=== PATIENT | female | born 1940 | race Caucasian/White ===

== ENCOUNTER 2023-04-06 03:39 | Inpatient (IN) | payer MEDICARE, OTHER ==
[~2023-04-06] VITALS: Ht 160 cm; Wt 45.4 kg
--- NOTE | 2023-04-06 04:00 | NUR ---
[facility] HOME FOR POOR PO INTAKE HX DEMETIA AND ALZHEIMER'S. GTUBE ACCIDENTALLY CAME OFF ON MARCH 21. PT IS AO X0, DOES NOT FOLLOW COMMANDS, BREATHING UNLABORED, SATURATION 100% ON ROOM AIR. HR IS 71. GTUBE SITE HAS CLOSED. PT ATTACHED TO MONITOR AND PULSE OX. AWAITING MD FIORE.
--- NOTE | 2023-04-06 04:25 | NUR ---
MAILING MACHINE OPERATOR AT BEDSIDE
[2023-04-06] MEDS ORDERED: LEVETIRACETAM (500MG) 500 MG/5 ML VIAL IV ONE (04:26)
[2023-04-06] MEDS ORDERED: LEVETIRACETAM (500MG) 500 MG in IV NS 0.9% 100 ML IV SCH (04:30)
--- NOTE | 2023-04-06 04:41 | NUR ---
KATHERIN LOPEZ [phone]
--- NOTE | 2023-04-06 05:02 | NUR ---
MRSA SWAB COLLECTED AND SENT TO LAB. PATIENT'S BELONGINGS LIST DONE.
[2023-04-06] MEDS ORDERED: PANT40TA49 PO (05:23)
[2023-04-06] MEDS ORDERED: SENN-170 PO (05:23)
[2023-04-06] MEDS ORDERED: ZOLP10TA2 PO (05:23)
[2023-04-06] MEDS ORDERED: FLUO10CA29 PO (05:23)
[2023-04-06] MEDS ORDERED: FURO20TA4 PO (05:23)
[2023-04-06] MEDS ORDERED: LORA-259 PO (05:23)
[2023-04-06] MEDS ORDERED: ATOR20TA PO (05:23)
[2023-04-06] MEDS ORDERED: LEVE250T2 PO (05:23)
[2023-04-06] MEDS ORDERED: IV NS 0.9% 1,000 ML IV ONE (05:30)
--- NOTE | 2023-04-06 05:33 | NUR ---
COVID SWAB COLLECTED
[2023-04-06] MEDS ORDERED: MAGNESIUM HYDROXIDE 30 ML UDC PO PRN (06:30)
[2023-04-06] MEDS ORDERED: Z GUARD REMEDY 4 OZ OINT TP PRN (06:30)
[2023-04-06] MEDS ORDERED: ACETAMINOPHEN 325 MG TABLET PO PRN (06:30)
[2023-04-06] MEDS ORDERED: ZOLPIDEM TARTRATE 5 MG TABLET PO PRN (06:30)
[2023-04-06] MEDS ORDERED: ONDANSETRON HCL/PF 4 MG/2 ML VIAL IVP PRN (06:30)
[2023-04-06] MEDS ORDERED: MAG HYDROX/AL HYDROX/SIMETH 30 ML UDC PO PRN (06:30)
--- NOTE | 2023-04-06 06:33 | NUR ---
BED 112-1
--- NOTE | 2023-04-06 06:40 | NUR ---
REPORT GIVEN TO SARAN PEREZ FOR HALIMA
--- NOTE | 2023-04-06 06:41 | NUR ---
RN NOTE JUST RECEIVED REPORT FROM ER NURSE, TYSON, FOR THIS PT.
[2023-04-06 06:51] LABS: BASOPHILS # (AUTO) 0.1 K/uL (0.0-0.2); BASOPHILS % (AUTO) 1.3 % (0.0-2.0); EOSINOPHILS % (AUTO) 1.8 % (0.0-6.0); HEMATOCRIT 35 % (33-45); HEMOGLOBIN 11.3 g/dL (11.5-14.8); LYMPHOCYTES # (AUTO) 3.1 K/uL (0.8-4.8); LYMPHOCYTES % (AUTO) 36.4 % (20.0-44.0); MEAN CORPUSCULAR HGB CONC 32 g/dl (31.0-36.0); MEAN CORPUSCULAR VOLUME 93 fL (82-100); MONOCYTES # (AUTO) 0.6 K/uL (0.1-1.30); MONOCYTES % (AUTO) 7.3 % (2.0-12.0); NEUTROPHILS # (AUTO) 4.6 K/uL (1.8-8.9); NEUTROPHILS % (AUTO) 53.2 % (43.0-81.0); PLATELET COUNT (AUTO) 281 K/uL (150-450); RED BLOOD CELL COUNT(AUTO) 3.77 MIL/uL (4.0-5.2); WHITE BLOOD COUNT (AUTO) 8.6 K/uL (4.3-11.0)
--- NOTE | 2023-04-06 06:59 | NUR ---
TRANSFERRED TO BED 112 IN STABLE CONDITION
[2023-04-06 07:01] LABS: CALCIUM, SERUM 8.9 mg/dL (8.5-10.1); CREATININE 1.3 mg/dL (0.6-1.3); POTASSIUM 2.9 mmol/L (3.5-5.1)
--- NOTE | 2023-04-06 07:20 | NUR ---
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
[2023-04-06] MEDS: IV D5/0.45 NACL 1,000 ML IV PRN (07:22)
--- NOTE | 2023-04-06 07:39 | NUR ---
MS RN NOTE CHANGE SHIFT REPORT GIVEN TO DAY SHIFT RN, CONNIE, FOR CONTINUING PT CARE.
[2023-04-06 08:24] VITALS: BP 156/85
[2023-04-06] MEDS: PANTOPRAZOLE 40 MG VIAL IV SCH (09:19)
[2023-04-06] MEDS: POTASSIUM CL. PREMIX PERIPHER. 50 ML IV SCH ×6 (10:15→16:56)
[2023-04-06] MEDS ORDERED: GABA-532 PO (10:26)
[2023-04-06] MEDS ORDERED: SENN-261 PO (10:26)
[2023-04-06] MEDS ORDERED: CLOP75TA15 PO (10:26)
[2023-04-06] MEDS ORDERED: METO25TA20 PO (10:26)
--- NOTE | 2023-04-06 10:50 | NUR ---
rn received patient from yaron alas, ngt inserted at left nare, waiting for xray to be done, failure to thrive, confuse patient, bilateral soft wrist restrain done due to pulling out of ngt, no distress noted all needs attended.
--- NOTE | 2023-04-06 11:00 | NUR ---
ms rn patient so agitated, removed, ngt at this itme, patient put on bilateral soft wrist restraint, family waere notified br charge nurse.will monitor patient.
[2023-04-06 12:00] VITALS: BP 140/82
[2023-04-06] MEDS ORDERED: LORAZEPAM 1 MG TABLET PO PRN (14:30)
[2023-04-06 16:00] VITALS: BP 151/66
--- NOTE | 2023-04-06 17:00 | NUR ---
ms rn ngt reinserted w/ confirmed placement, due meds given via ngt, no distress noted,all needs attended.
--- NOTE | 2023-04-06 17:22 | NUR ---
MS RN NOTE CALLED TO DR DONIS NOTIFIED THAT PATIENT IS VERY AGITATED AND TRYING TO REMOVE ALL LINENS AND NG TUBE ,ORDERED HALDOL 1 MG IM Q8 HOUR PRN
[2023-04-06] MEDS ORDERED: HALOPERIDOL LACTATE INJ 5 MG/ML VIAL IM PRN ×2 (17:30)
[2023-04-06] MEDS: METOPROLOL TARTRATE 25 MG TABLET PO SCH (17:58)
[2023-04-06] MEDS: LEVETIRACETAM (250 MG) 250 MG TABLET PO SCH (17:58)
--- NOTE | 2023-04-06 19:15 | NUR ---
ms rn on bed, no distress noted,all needs attended,ngt in place.to be seen by dietary for feeding per charge nurse.
[2023-04-06 20:00] VITALS: BP 129/67
[2023-04-06] MEDS: SENNOSIDES 8.6 MG TABLET PO SCH (21:17)
[2023-04-06] MEDS: ATORVASTATIN 10 MG TABLET PO SCH (21:17)
[2023-04-06] MEDS: GABAPENTIN 100 MG CAPSULE PO SCH (21:17)
[2023-04-07] VITALS: BP 133/85
[2023-04-07 04:00] VITALS: BP 137/82
--- NOTE | 2023-04-07 06:44 | NUR ---
FILM TECHNICIAN closing notes Pt resting in bed, eyes closed, in stable condition, all due meds given per MD orders, tolerated well, all basic needs met and anticipated, will continue to monitor
--- NOTE | 2023-04-07 07:30 | NUR ---
MS RN OPENING NOTES; RECEIVED PT IN BED ASLEEP NOT IN ANY DISTRESS, RESPIRATION IS EVEN AND UNLABORED.NGT on left nares,npo at this time,no s/s of any distress,, iv access LAC 20G running D5 1/2 ns 75 cc/hr.all safety measures in place, bed in low and locked position,side rails up x 3, call light within reach,will monitor
[2023-04-07 08:00] VITALS: BP 140/67
[2023-04-07 08:21] LABS: BASOPHILS % (AUTO) 0.5 % (0.0-2.0); EOSINOPHILS % (AUTO) 2.4 % (0.0-6.0); HEMATOCRIT 33 % (33-45); HEMOGLOBIN 10.7 g/dL (11.5-14.8); LYMPHOCYTES # (AUTO) 2.4 K/uL (0.8-4.8); LYMPHOCYTES % (AUTO) 29.5 % (20.0-44.0); MEAN CORPUSCULAR HGB CONC 33 g/dl (31.0-36.0); MEAN CORPUSCULAR VOLUME 93 fL (82-100); MONOCYTES # (AUTO) 0.6 K/uL (0.1-1.30); MONOCYTES % (AUTO) 7.1 % (2.0-12.0); NEUTROPHILS # (AUTO) 4.9 K/uL (1.8-8.9); NEUTROPHILS % (AUTO) 60.5 % (43.0-81.0); PLATELET COUNT (AUTO) 261 K/uL (150-450); RED BLOOD CELL COUNT(AUTO) 3.54 MIL/uL (4.0-5.2); WHITE BLOOD COUNT (AUTO) 8.1 K/uL (4.3-11.0)
[2023-04-07 08:41] LABS: CALCIUM, SERUM 9.5 mg/dL (8.5-10.1); MAGNESIUM 2.5 mg/dL (1.8-2.4); PHOSPHORUS 2.5 mg/dL (2.5-4.9); POTASSIUM 3.8 mmol/L (3.5-5.1)
[2023-04-07] MEDS: METOPROLOL TARTRATE 25 MG TABLET PO SCH ×3 (09:00→17:00)
[2023-04-07] MEDS ORDERED: PANTOPRAZOLE 40 MG TABLET.DR PO SCH (09:00)
[2023-04-07 09:10] LABS: THYROID STIMULATING HORMONE 0.216 uIU/mL (0.358-3.74)
[2023-04-07] MEDS: PANTOPRAZOLE 40 MG VIAL IV SCH (09:20)
[2023-04-07] MEDS: LEVETIRACETAM (250 MG) 250 MG TABLET PO SCH ×2 (09:21→17:51)
[2023-04-07] MEDS: FUROSEMIDE 20 MG TABLET PO SCH (09:21)
[2023-04-07] MEDS: Fluoxetine 10 mg capsule PO SCH (09:21)
[2023-04-07] MEDS: CLOPIDOGREL BISULFATE 75 MG TABLET PO SCH (09:21)
--- NOTE | 2023-04-07 10:45 | NUR ---
seen by who said pt is safe only for ice chips no food recommended at this time spoke to DR Aquino with order to start tube feeding jevity 1.2 at 20 ml/hr and RD recommendation.
[2023-04-07] MEDS ORDERED: JEVITY 1.2 CAL 1,000 ML BOTTLE GT PRN ×2 (11:00)
[2023-04-07] MEDS: IV D5/0.45 NACL 1,000 ML IV PRN (14:04)
[2023-04-07 16:00] VITALS: BP 120/64
--- NOTE | 2023-04-07 19:38 | NUR ---
rn closing noted: Pt resting in bed, eyes closed, in stable condition, all due meds given per MD orders, tolerated well, all basic needs met and anticipated, all safety measures in place, bed in low and locked position.call light within reachendorsed to community aide RN for brando
--- NOTE | 2023-04-07 19:40 | NUR ---
MS RN OPENING NOTE RECEIVED PATIENT IN BED; AWAKE, ALERT AND ORIENTED X 1. CONFUSED. ON ROOM AIR; TOLERATING WELL SATURATING @ 96%. BREATHING EVEN AND NONLABORED. NOT IN ANY FORM OF RESPIRATORY OR CARDIAC DISTRESS. NO S/S OF PAIN OR DISCOMFORT NOTED AT THIS TIME. WITH IV ACCESS ON LEFT HAND 20g; PATENT AND INTACT RUNNING WITH D5 1/2 NS 1L REGULATED @ 75 ML/HR; FLUSHES WELL. WITH BILATERAL SOFT WRIST RESTRAINTS IN PLACE; SKIN AND CIRCULATION; WNL. WITH NGT @ LEFT NARES; PATENT AND INTACT INFUSING WITH JEVITY 1.2 RUNNING @ 20 ML/HR; FLUSHING WELL. NEEDS ATTENDED. FALL, SAFETY AND ASPIRATION PRECAUTIONS INITIATED: HEAD OF BED ELEVATED, CALL LIGHT AND TABLE WITHIN REACH, SIDE RAILS UP X 3, BED IN LOWEST LOCKED POSITION. WILL CONTINUE TO MONITOR THROUGHOUT SHIFT.
[2023-04-07 20:00] VITALS: BP 144/73
[2023-04-07] MEDS: GABAPENTIN 100 MG CAPSULE PO SCH (21:39)
[2023-04-07] MEDS: ATORVASTATIN 10 MG TABLET PO SCH (21:39)
[2023-04-07] MEDS: SENNOSIDES 8.6 MG TABLET PO SCH (21:39)
[2023-04-08 04:00] VITALS: BP 155/78
[2023-04-08] MEDS: IV D5/0.45 NACL 1,000 ML IV PRN ×2 (04:52→18:30)
--- NOTE | 2023-04-08 06:40 | NUR ---
MS RN CLOSING NOTE PATIENT IN BED; AWAKE, A/O X 1. CONFUSED. STABLE ON ROOM AIR. IN NO ACUTE DISTRESS. NO S/S OF PAIN OR DISCOMFORT NOTED AT THIS TIME. WITH IV ACCESS ON RIGHT HAND 20g; PATENT AND INTACT RUNNING WITH D5 1/2 NS 1L REGULATED @ 75 ML/HR; FLUSHES WELL. WITH BILATERAL SOFT WRIST RESTRAINTS IN PLACE; SKIN AND CIRCULATION; WNL. WITH NGT @ LEFT NARES; PATENT AND INTACT INFUSING WITH JEVITY 1.2 RUNNING @ 20 ML/HR; FLUSHING WELL. ALL NEEDS ATTENDED. FALL, SAFETY AND ASPIRATION PRECAUTIONS MAINTAINED: HEAD OF BED ELEVATED, CALL LIGHT AND TABLE WITHIN REACH, SIDE RAILS UP X 3, BED IN LOWEST LOCKED POSITION. ENDORSED TO MORNING SHIFT FOR CONTINUITY OF CARE.
--- NOTE | 2023-04-08 07:41 | NUR ---
MS RN OPENING NOTE (DAY SHIFT) RECEIVED PT IN BED ASLEEP NOT IN ANY DISTRESS, RESPIRATION IS EVEN AND UNLABORED.NGT on left nares,npo at this time,no s/s of any distress,, iv access LAC 20G running D5 1/2 ns 75 cc/hr.all safety measures in place, bed in low and locked position,side rails up x 3, call light within reach,will monitor and continuie to care for patient per hospitalist provider's POC.
[2023-04-08 08:00] VITALS: BP 124/72
[2023-04-08 09:44] LABS: CALCIUM, SERUM 9.1 mg/dL (8.5-10.1); CREATININE 0.9 mg/dL (0.6-1.3)
[2023-04-08 09:49] LABS: POTASSIUM 2.8 mmol/L (3.5-5.1)
[2023-04-08] MEDS: POTASSIUM CHLORIDE 20 MEQ TAB.PRT.SR PO ONE ×2 (11:30→12:07)
[2023-04-08] MEDS: PANTOPRAZOLE 40 MG/PACK PACK GT SCH (11:40)
[2023-04-08] MEDS: Fluoxetine 10 mg capsule PO SCH (11:40)
[2023-04-08] MEDS: CLOPIDOGREL BISULFATE 75 MG TABLET PO SCH (11:41)
[2023-04-08] MEDS: FUROSEMIDE 20 MG TABLET PO SCH (11:41)
[2023-04-08] MEDS: METOPROLOL TARTRATE 25 MG TABLET PO SCH ×2 (11:41→17:24)
[2023-04-08] MEDS: LEVETIRACETAM (250 MG) 250 MG TABLET PO SCH ×2 (11:42→17:24)
[2023-04-08 12:00] VITALS: BP 132/71
[2023-04-08 13:00] VITALS: BP 132/71
[2023-04-08 16:00] VITALS: BP_SYST 145; BP_SYST 146; BP_DIAS 60; BP_DIAS 79
[2023-04-08] MEDS ORDERED: POTASSIUM CHLORIDE 20 MEQ POWDER PACKET GT STA (18:06)
--- NOTE | 2023-04-08 18:50 | NUR ---
MS VIJAYA RN CLOSING NOTE (DAY SHIFT) Pt resting in bed, eyes closed, in stable condition, all due meds given per MD orders, tolerated well, all basic needs met and anticipated, all safety measures in place, bed in low and locked position. Aspiration precautions maintained with HOB up at all times for 24 hour tube feeding. Pt tolerating tube feeding with new 16 German NG tube to right nares due to left nares NG tube becoming clogged and requiring removal. NG tube confirmed placement with both auscultation and CXR. Patient also tolerating 1;1 feeding of pureed diet without nausea, vomitting nor aspiration although has poor appetite. Bilateral soft wrist restraints in place to maintain patient safety. Will endorse to learning disabilities specialist RN for HALIMA.
--- NOTE | 2023-04-08 20:00 | NUR ---
MS RN NOTE PT IN BED AWAKE, SMILING. A/O X 1 CONFUSED. ON ROOM AIR. NO SOB, NO DISTRESS OR DISCOMFORT NOTED. NO S/S OF PAIN NOTED. RT NARE NGT INTACT AND PATENT INFUSING JEVITY AT 30 ML/HR, 0 ML RESIDUAL NOTED. RESTRAINTS ON BILATERAL SOFT WRIST. PT CONTINUE TO TRYING TO REACH TO THE TUBINGS. KEPT IT HIDDEN. IVF D 5 1/2 NS INFUSING AT 75 ML/HR, NO S/S OF INFILTRATION NOTED. KEPT HOB ELEVATED. ALL NEEDS ATTENDED. KEPT HER DRY AND CLEAN . VSS. CONTINUE TO MONITOR HER.
[2023-04-08] MEDS: JEVITY 1.2 CAL 1,000 ML BOTTLE GT PRN (20:05)
[2023-04-08 21:00] VITALS: BP 142/83
[2023-04-08] MEDS: SENNOSIDES 8.6 MG TABLET PO SCH (22:00)
[2023-04-08] MEDS: GABAPENTIN 100 MG CAPSULE PO SCH (22:07)
[2023-04-08] MEDS: ATORVASTATIN 10 MG TABLET PO SCH (22:07)
[2023-04-09 05:00] VITALS: BP 145/71
--- NOTE | 2023-04-09 07:19 | NUR ---
MS RN OPENING NOTE PT RECEIVED IN BED AWAKE. A/O X 1 CONFUSED. ON ROOM AIR WITH NO S/S OF SOB OR RESPIRATORY DISTRESS. BREATHING EVEN AND UNLABORED. NO S/S OF PAIN OR DISCOMFORT NOTED. RT NARE NGT INTACT AND PATENT INFUSING JEVITY AT 40 ML/HR. BILATERAL SOFT WRIST RESTRAINTS ON. R HAND 22G PATENT AND INTACT INFUSING D 5 1/2 NS AT 75 ML/HR. LAC 22G INTACT AND PATENT. HOB ELEVATED. SAFETY PRECAUTIONS IN PLACE WITH BED IN LOWEST LOCKED POSITION, SIDE RAILS UP X3, AND BED ALARM IN REACH. WILL CONTINUE TO MONITOR.
[2023-04-09] MEDS: LEVETIRACETAM (250 MG) 250 MG TABLET PO SCH ×2 (08:26→16:09)
[2023-04-09] MEDS: PANTOPRAZOLE 40 MG/PACK PACK GT SCH (08:26)
[2023-04-09] MEDS: CLOPIDOGREL BISULFATE 75 MG TABLET PO SCH (08:26)
[2023-04-09] MEDS: FUROSEMIDE 20 MG TABLET PO SCH (08:28)
[2023-04-09] MEDS: Fluoxetine 10 mg capsule PO SCH (08:28)
[2023-04-09] MEDS: METOPROLOL TARTRATE 25 MG TABLET PO SCH ×2 (08:36→16:09)
--- NOTE | 2023-04-09 09:58 | NUR ---
PER DR ESPINOZA, KEEP PATIENT ON NGT FEEDING DUE TO POOR PO INTAKE.
[2023-04-09] MEDS: IV D5/0.45 NACL 1,000 ML IV PRN (10:48)
--- NOTE | 2023-04-09 12:40 | NUR ---
NO RESIDUAL NOTED FROM NGT. FEEDING INCREASED TO 55 ML/HR.
--- NOTE | 2023-04-09 18:14 | NUR ---
MS RN CLOSING NOTE PT IN BED ASLEEP. RESPONDS TO VERBAL STIMULI. A/O X 0. ON ROOM AIR WITH NO S/S OF SOB OR RESPIRATORY DISTRESS. BREATHING EVEN AND UNLABORED. NO S/S OF PAIN OR DISCOMFORT NOTED. RT NARE NGT INTACT AND PATENT INFUSING JEVITY AT 55 ML/HR WITH NO RESIDUAL. BILATERAL SOFT WRIST RESTRAINTS ON WITH SKIN INTACT AND WARM TO TOUCH. R HAND 22G PATENT AND INTACT INFUSING D5 1/2 NS AT 75 ML/HR. LAC 22G INTACT AND PATENT. ALL DUE MEDS GIVEN AND PATIENT KEPT CLEAN AND COMFORTABLE. SAFETY PRECAUTIONS IN PLACE WITH HOB ELEVATED, BED IN LOWEST LOCKED POSITION, SIDE RAILS UP X3, AND BED ALARM IN REACH. WILL CONTINUE TO MONITOR. Addendum: 04/09/23 at 1821 by WIL DODSON RN WILL ENDORSE TO PM SHIFT FOR HALIMA.
--- NOTE | 2023-04-09 20:00 | NUR ---
Received patient awake alert but confused.M/S status.DX:Failure to thrive.Respiration even and unlabored.On RA saturation 99%.Patient on tube feeding via NGT.Placement verified.No residual noted.Maintain HOB elevated to prevent aspiration.IVF infusing well. Will turned and reposition Q 2 hrs.Safety measures implemented.Plan of care implemented. Continue to monitor.
[2023-04-09] MEDS: JEVITY 1.2 CAL 1,000 ML BOTTLE GT PRN (20:21)
[2023-04-09 21:00] VITALS: BP 137/69
[2023-04-09] MEDS: SENNOSIDES 8.6 MG TABLET PO SCH (21:32)
[2023-04-09] MEDS: ATORVASTATIN 10 MG TABLET PO SCH (21:32)
[2023-04-09] MEDS: GABAPENTIN 100 MG CAPSULE PO SCH (21:32)
[2023-04-10] MEDS: IV D5/0.45 NACL 1,000 ML IV PRN ×2 (02:46→16:27)
[2023-04-10 05:00] VITALS: BP 105/66
--- NOTE | 2023-04-10 06:50 | NUR ---
Patient resting in no acute distress.VS remains stable.Tolerating ngt feeding.Incontinent of urine.Kept clean and dry.Bed bath rendered.Complete linens changed.Turned and repositioned to comfort.Safety measures maintained.No significant changes noted during the night.
--- NOTE | 2023-04-10 07:19 | NUR ---
MS RN OPENING NOTE PT RECEIVED IN BED SLEEPING. ON ROOM AIR WITH NO S/S OF SOB OR RESPIRATORY DISTRESS. BREATHING EVEN AND UNLABORED. NO S/S OF PAIN OR DISCOMFORT NOTED. RT NARE NGT INTACT AND PATENT INFUSING JEVITY AT 55 ML/HR. BILATERAL SOFT WRIST RESTRAINTS ON WITH SKIN INTACT AND WARM TO TOUCH. R HAND 22G PATENT AND INTACT INFUSING D5 1/2 NS AT 75 ML/HR. LAC 22G INTACT AND PATENT. SAFETY PRECAUTIONS IN PLACE WITH HOB ELEVATED, BED IN LOWEST LOCKED POSITION, SIDE RAILS UP X3, AND BED ALARM IN REACH. WILL CONTINUE TO MONITOR.
[2023-04-10 08:00] VITALS: BP 158/71
[2023-04-10] MEDS: LEVETIRACETAM (250 MG) 250 MG TABLET PO SCH ×2 (08:58→16:39)
[2023-04-10] MEDS: FUROSEMIDE 20 MG TABLET PO SCH (08:58)
[2023-04-10] MEDS: CLOPIDOGREL BISULFATE 75 MG TABLET PO SCH (08:58)
[2023-04-10] MEDS: PANTOPRAZOLE 40 MG/PACK PACK GT SCH (08:58)
[2023-04-10] MEDS: Fluoxetine 10 mg capsule PO SCH (08:58)
[2023-04-10] MEDS: METOPROLOL TARTRATE 25 MG TABLET PO SCH ×2 (08:59→16:40)
--- NOTE | 2023-04-10 12:24 | NUR ---
DR ESPINOZA REQUESTS CONSENT FOR PEG TUBE PLACEMENT. CONTACTED PATIENT'S SON MIO LUEVANO WHO PROVIDED CONSENT.
[2023-04-10 16:00] VITALS: BP 117/58
[2023-04-10] MEDS: JEVITY 1.2 CAL 1,000 ML BOTTLE GT PRN (18:56)
--- NOTE | 2023-04-10 19:30 | NUR ---
MS RN OPENING NOTE RECEIVED PT IN BED SLEEPING. ON ROOM AIR WITH NO S/S OF SOB OR RESPIRATORY DISTRESS. BREATHING EVEN AND UNLABORED. NO S/S OF PAIN OR DISCOMFORT NOTED. RT NARE NGT INTACT AND PATENT INFUSING JEVITY AT 55 ML/HR. BILATERAL SOFT WRIST RESTRAINTS ON WITH SKIN INTACT AND WARM TO TOUCH. R HAND 22G PATENT AND INTACT INFUSING D5 1/2 NS AT 75 ML/HR. LAC 22G INTACT AND PATENT. SAFETY PRECAUTIONS IN PLACE WITH HOB ELEVATED, BED IN LOWEST LOCKED POSITION, SIDE RAILS UP X3, AND BED ALARM IN REACH. WILL CONTINUE TO MONITOR THROUGHOUT THE SHIFT.
--- NOTE | 2023-04-10 19:34 | NUR ---
MS RN CLOSING NOTE PT IN BED RESTING. ON ROOM AIR WITH NO S/S OF SOB OR RESPIRATORY DISTRESS. BREATHING EVEN AND UNLABORED. NO S/S OF PAIN OR DISCOMFORT NOTED. RT NARE NGT INTACT AND PATENT INFUSING JEVITY AT 55 ML/HR. BILATERAL SOFT WRIST RESTRAINTS ON WITH SKIN INTACT AND WARM TO TOUCH. R HAND 22G PATENT AND INTACT INFUSING D5 1/2 NS AT 75 ML/HR. LAC 22G INTACT AND PATENT. ALL DUE MEDS GIVEN AND PATIENT KEPT CLEAN AND COMFORTABLE. SAFETY PRECAUTIONS IN PLACE WITH HOB ELEVATED, BED IN LOWEST LOCKED POSITION, SIDE RAILS UP X3, AND BED ALARM IN REACH. WILL ENDORSE TO ONCOMING SHIFT FOR HALIMA. Addendum: 04/10/23 at 1941 by WIL DODSON RN PATIENT ALERT AND ORIENTED X0. RESPONDS TO VERBAL STIMULI.
[2023-04-10] MEDS: ATORVASTATIN 10 MG TABLET PO SCH (21:28)
[2023-04-10] MEDS: GABAPENTIN 100 MG CAPSULE PO SCH (21:29)
[2023-04-10] MEDS: SENNOSIDES 8.6 MG TABLET PO SCH (21:29)
--- NOTE | 2023-04-10 22:31 | NUR ---
RN NOTE PT SONMIO CAME WITH PATIENT ADVANCE DIRECTIVES, PER MIO HIS MOM IS ON DNR STATUS. POLST SIGNED BY SON AND PLACE ON CHART, RN OUTPATIENT SURGERY MD PABLO MADE AWARE. ORDERED NEW CODE STATUS OF THE PT.
[2023-04-11] VITALS: BP 134/67
[2023-04-11] MEDS: IV D5/0.45 NACL 1,000 ML IV PRN ×2 (05:27→18:31)
--- NOTE | 2023-04-11 06:45 | NUR ---
MS RN CLOSING NOTE PT REMAINS IN BED SLEEPING. ON ROOM AIR WITH NO S/S OF SOB OR RESPIRATORY DISTRESS. BREATHING EVEN AND UNLABORED. NO S/S OF PAIN OR DISCOMFORT NOTED. RT NARE NGT INTACT AND PATENT INFUSING JEVITY AT 55 ML/HR. BILATERAL SOFT WRIST RESTRAINTS ON WITH SKIN INTACT AND WARM TO TOUCH. R HAND 22G PATENT AND INTACT INFUSING D5 1/2 NS AT 75 ML/HR. L HAND 22G INTACT AND PATENT. SAFETY PRECAUTIONS IN PLACE WITH HOB ELEVATED, BED IN LOWEST LOCKED POSITION, SIDE RAILS UP X3, AND BED ALARM IN REACH. ALL DUE MEDS GIVEN, KEPT DRY AND CLEAN, WILL ENDORSE TO AM SHIFT NURSE FOR CONTINUITY OF CARE.
--- NOTE | 2023-04-11 07:28 | NUR ---
MS RN OPENING NOTE PT RECEIVED IN BED AWAKE. ALERT AND ORIENTED X0. ON ROOM AIR WITH NO S/S OF SOB OR RESPIRATORY DISTRESS. BREATHING EVEN AND UNLABORED. NO S/S OF PAIN OR DISCOMFORT NOTED. RT NARE NGT INTACT AND PATENT INFUSING JEVITY AT 55 ML/HR. BILATERAL SOFT WRIST RESTRAINTS ON WITH SKIN INTACT AND WARM TO TOUCH. R HAND 22G PATENT AND INTACT INFUSING D5 1/2 NS AT 75 ML/HR. L HAND 22G INTACT AND PATENT. SAFETY PRECAUTIONS IN PLACE WITH HOB ELEVATED, BED IN LOWEST LOCKED POSITION, SIDE RAILS UP X3, AND BED ALARM IN REACH. WILL CONTINUE TO MONITOR.
[2023-04-11 08:00] VITALS: BP 131/67
[2023-04-11 09:32] LABS: POTASSIUM 3.9 mmol/L (3.5-5.1)
--- NOTE | 2023-04-11 10:37 | NUR ---
CHARGE NURSE NENO Thapa RN STATED THAT THE NGT MAY HAVE DISLODGED. CHECKED PLACEMENT BY INSERTING AIR. WILL ORDER XRAY TO CONFIRM.
--- NOTE | 2023-04-11 10:52 | NUR ---
MEDS ON HOLD UNTIL CONFIRMATION OF NGT PLACEMENT IT MAY HAVE DISLODGED.
--- NOTE | 2023-04-11 11:33 | NUR ---
RELAYED TO DR ESPINOZA THAT DR CASILLAS WAS CONTACTED REGARDING PEG TUBE PLACEMENT, AND THAT DR CASILLAS DID NOT RESPOND. DR ESPINOZA STATED TO CONTINUE WITH NGT FEEDING UNTIL FURTHER NOTICE.
[2023-04-11] MEDS: PANTOPRAZOLE 40 MG/PACK PACK GT SCH (12:46)
[2023-04-11] MEDS: LEVETIRACETAM (250 MG) 250 MG TABLET PO SCH ×2 (12:46→17:46)
[2023-04-11] MEDS: FUROSEMIDE 20 MG TABLET PO SCH (12:46)
[2023-04-11] MEDS: CLOPIDOGREL BISULFATE 75 MG TABLET PO SCH (12:47)
[2023-04-11] MEDS: Fluoxetine 10 mg capsule PO SCH (12:47)
[2023-04-11] MEDS: METOPROLOL TARTRATE 25 MG TABLET PO SCH ×2 (12:47→17:47)
--- NOTE | 2023-04-11 13:10 | NUR ---
ADVANCED NGT BY 10 CM PER RADIOLOGY REPORT. ADMINISTERED MEDICATION.
[2023-04-11 16:00] VITALS: BP 133/73
--- NOTE | 2023-04-11 19:45 | NUR ---
MS RN OPENING NOTE PT IN BED ASLEEP. ALERT AND ORIENTED X0 BUT RESPONSIVE TO VERBAL STIMULI. ON ROOM AIR WITH NO S/S OF SOB OR RESPIRATORY DISTRESS. BREATHING EVEN AND UNLABORED. NO S/S OF PAIN OR DISCOMFORT NOTED. RT NARE NGT INTACT AND PATENT INFUSING JEVITY AT 55 ML/HR. BILATERAL SOFT WRIST RESTRAINTS ON AND WARM TO TOUCH. R HAND 22G PATENT AND INTACT INFUSING D5 1/2 NS AT 75 ML/HR. L HAND 22G INTACT AND PATENT. SAFETY PRECAUTIONS IN PLACE WITH HOB ELEVATED, BED IN LOWEST LOCKED POSITION, SIDE RAILS UP X3, AND BED ALARM IN REACH.
--- NOTE | 2023-04-11 20:06 | NUR ---
MS RN CLOSING NOTE PT IN BED ASLEEP. ALERT AND ORIENTED X0 BUT RESPONSIVE TO VERBAL STIMULI. ON ROOM AIR WITH NO S/S OF SOB OR RESPIRATORY DISTRESS. BREATHING EVEN AND UNLABORED. NO S/S OF PAIN OR DISCOMFORT NOTED. RT NARE NGT INTACT AND PATENT INFUSING JEVITY AT 55 ML/HR. BILATERAL SOFT WRIST RESTRAINTS ON WITH SKIN INTACT AND WARM TO TOUCH. R HAND 22G PATENT AND INTACT INFUSING D5 1/2 NS AT 75 ML/HR. L HAND 22G INTACT AND PATENT. ALL DUE MEDS GIVEN AND PATIENT KEPT CLEAN AND COMFORTABLE. SAFETY PRECAUTIONS IN PLACE WITH HOB ELEVATED, BED IN LOWEST LOCKED POSITION, SIDE RAILS UP X3, AND BED ALARM IN REACH. WILL ENDORSE TO ONCOMING SHIFT FOR HALIMA.
[2023-04-11] MEDS: ATORVASTATIN 10 MG TABLET PO SCH (21:35)
[2023-04-11] MEDS: SENNOSIDES 8.6 MG TABLET PO SCH (21:35)
[2023-04-11] MEDS: GABAPENTIN 100 MG CAPSULE PO SCH (21:35)
[2023-04-12] VITALS: BP 118/57
[2023-04-12 05:35] VITALS: BP 134/55
--- NOTE | 2023-04-12 07:32 | NUR ---
WOUND CARE CONSULT: PT PRESENTS WITH CONTRACTED LOWER EXTREMITIES, SACRAL SCARRING, PRESENT ON ADMISSION. PT NOTED TO HAVE RT ELBOW SKIN TEAR. PT IS INCONTINENT. RECOMMENDATIONS MADE FOR SKIN PROTECTION AND WOUND CARE. DISCUSSED WITH NURSING STAFF. PT [facility] ON [facility] BED. IN AGREEMENT WITH PLAN OF CARE. Addendum: 04/12/23 at 1547 by KANE GALICIA WNDNU Amended: Links added.
[2023-04-12 08:00] VITALS: BP 121/69
[2023-04-12] MEDS: LEVETIRACETAM (250 MG) 250 MG TABLET PO SCH (09:11)
[2023-04-12] MEDS: METOPROLOL TARTRATE 25 MG TABLET PO SCH ×2 (09:11→17:00)
[2023-04-12] MEDS: FUROSEMIDE 20 MG TABLET PO SCH (09:11)
[2023-04-12] MEDS: PANTOPRAZOLE 40 MG/PACK PACK GT SCH (09:11)
[2023-04-12] MEDS: CLOPIDOGREL BISULFATE 75 MG TABLET PO SCH (09:11)
[2023-04-12] MEDS: Fluoxetine 10 mg capsule PO SCH (09:11)
[2023-04-12 16:00] VITALS: BP 132/61
--- NOTE | 2023-04-12 19:10 | NUR ---
RN CLOSING NOTE PT IN BED ASLEEP. STATUS POST PEG PLACEMENT, CAME FROM SURGERY DEPARTMENT AT 19:00. ON ROOM AIR WITH NO S/S OF SOB OR RESPIRATORY DISTRESS. BREATHING EVEN AND UNLABORED. BILATERAL SOFT WRIST RESTRAINTS ON. R HAND 22G PATENT AND INTACT INFUSING D5 1/2 NS AT 75 ML/HR. L HAND 22G INTACT AND PATENT. SAFETY PRECAUTIONS IN PLACE WITH HOB ELEVATED, BED IN LOWEST LOCKED POSITION, SIDE RAILS UP X3, WILL ENDORSE TO THE NEXT SHIFT NURSE FOR HALIMA.
--- NOTE | 2023-04-12 19:30 | NUR ---
MS RN NOTES RECEIVED LYING ON BED,A/O X1-2,CONFUSED,S/P PEG PLACEMENT TODAY BY DR CASILLAS,TUBE CLAMP THIS TIME,GT FEEDING WILL START IN THE MORNING,ON BILATERAL SOFT WRIST RESTRAINTS FOR SAFETY,PULLING OUT TUBINGS INCLUDING GTUBE.PRESENT IVF INFUSING WELL AT 75ML/HR RATE ON LEFT HAND VIA IV PUMP.SITE ON RIGHT HAND APPEARS SWOLLEN.FALL RISK,BED ON LOWEST POSITION AND LOCKED.CALL LIGHT IN REACH,NEEDS ANTICIPATED.
[2023-04-12 20:00] VITALS: BP 139/79
[2023-04-12] MEDS: SENNOSIDES 8.6 MG TABLET PO SCH (21:34)
[2023-04-12] MEDS: GABAPENTIN 100 MG CAPSULE PO SCH (21:34)
[2023-04-12] MEDS: ATORVASTATIN 10 MG TABLET PO SCH (21:34)
[2023-04-12] MEDS: IV D5/0.45 NACL 1,000 ML IV PRN (23:43)
[2023-04-13 06:03] VITALS: BP 134/80
--- NOTE | 2023-04-13 06:20 | NUR ---
MS RN NOTES FAIRLY RESTED AT NIGHT.PUREWICK IN PLACE DRAINS 600ML OUTPUT.RESTRAINTS IN USED ON BOTH HANDS FOR SAFETY.GT CLAMP,TO START GT FEEDING THIS MORNING.DNR/DNI STATUS.
--- NOTE | 2023-04-13 07:10 | NUR ---
MS RN OPENING NOTE: PT IN BED ASLEEP. ALERT AND ORIENTED X1 BUT RESPONSIVE TO VERBAL STIMULI. ON ROOM AIR WITH NO S/S OF SOB OR RESPIRATORY DISTRESS. BREATHING EVEN AND UNLABORED. NO S/S OF PAIN OR DISCOMFORT NOTED. BILATERAL SOFT WRIST RESTRAINTS ON AND WARM TO TOUCH. CHECK FOR SKIN INTEGRITY WITH NO SKIN BREAKDOWN. SAFETY PRECAUTIONS IN PLACE WITH HOB ELEVATED, BED IN LOWEST LOCKED POSITION, SIDE RAILS UP X3, AND BED ALARM IN REACH.
[2023-04-13 08:00] VITALS: BP 123/67
[2023-04-13] MEDS: JEVITY 1.2 CAL 1,000 ML BOTTLE GT PRN (08:05)
--- NOTE | 2023-04-13 08:30 | NUR ---
MS RN NOTE: DR. MIZRA AT BEDSIDE.
[2023-04-13] MEDS: METOPROLOL TARTRATE 25 MG TABLET PO SCH ×2 (09:19→16:49)
[2023-04-13] MEDS: PANTOPRAZOLE 40 MG/PACK PACK GT SCH (09:19)
[2023-04-13] MEDS: LEVETIRACETAM (250 MG) 250 MG TABLET PO SCH ×3 (09:20→16:48)
[2023-04-13] MEDS: Fluoxetine 10 mg capsule PO SCH (09:20)
[2023-04-13] MEDS: FUROSEMIDE 20 MG TABLET PO SCH (09:20)
[2023-04-13] MEDS: CLOPIDOGREL BISULFATE 75 MG TABLET PO SCH (09:20)
--- NOTE | 2023-04-13 12:13 | NUR ---
JOHN (SON) [phone] PER JOHN HE IS THE PRIMARY CAREGIVER AT HOME AND WILLING TO TAKE HER MOM HOME WITH HIS CAR. ONCE MEDICALLY CLEARED.
[2023-04-13] MEDS: IV D5/0.45 NACL 1,000 ML IV PRN (14:22)
--- NOTE | 2023-04-13 14:41 | NUR ---
CM NOTIFIED ABOUT DC ,NEED TO ARRANGE FEEDING AND HOME HEALTH ,WILL DC ONCE IT IS ARRANGED.
[2023-04-13 16:00] VITALS: BP 121/56
--- NOTE | 2023-04-13 18:26 | NUR ---
RN CLOSING NOTE PT IN BED AWAKE. ON ROOM AIR WITH NO S/S OF SOB OR RESPIRATORY DISTRESS. BREATHING EVEN AND UNLABORED. BILATERAL SOFT WRIST RESTRAINTS ON. R HAND 22G PATENT AND INTACT INFUSING D5 1/2 NS AT 75 ML/HR. L HAND 22G INTACT AND PATENT. SAFETY PRECAUTIONS IN PLACE WITH HOB ELEVATED, BED IN LOWEST LOCKED POSITION, SIDE RAILS UP X3, WILL ENDORSE TO THE NEXT SHIFT NURSE FOR HALIMA.
--- NOTE | 2023-04-13 19:20 | NUR ---
public works technician opening note Pt was resting in bed, awake, HOB elevated, A&Ox1, GT intact and patent, jevity 1.2 infusing well, breathing even and unlabored, on RA, NS at 75 cc/ hr infusing via Left hand 20 GA, infusing well, will continue to monitor
[2023-04-13] MEDS: ATORVASTATIN 10 MG TABLET PO SCH (21:12)
[2023-04-13] MEDS: GABAPENTIN 100 MG CAPSULE PO SCH (21:12)
[2023-04-13] MEDS: SENNOSIDES 8.6 MG TABLET PO SCH (21:13)
[2023-04-14] VITALS: BP 133/68
[2023-04-14] MEDS: JEVITY 1.2 CAL 1,000 ML BOTTLE GT PRN ×2 (04:14→22:33)
--- NOTE | 2023-04-14 06:08 | NUR ---
EARTH MOVING MACHINE OPERATOR closing notes PT is resting in bed, awake, HOB^, afebrile, breathing even and unlabored, on RA, 0 s/s of pain, A&Ox1, jevity 1.2 infusing well via GT, GT intact and patent, 0 residual noted, L hand #20, CDI, NS at 75 ml/ hr infusing well, all due meds given per MD orders, tolerated well, all basic needs met and anticipated, all safety measures in place, will continue to monitor.
[2023-04-14 08:00] VITALS: BP 145/57
--- NOTE | 2023-04-14 08:03 | NUR ---
RN OPENING NOTE RECEIVED PATIENT IN BED, AO X 1, CONFUSED. ABLE TO RESPONDS ALL PHYSICAL STIMULI. RESPIRATORY EVEN AND UNLABORED IN ROOM AIR, IN NO ACUTE RESPIRATORY DISTRESS OBSERVED. SKIN IS WARM TO TOUCH, KEEP CLEAN/DRY. KEPT ELEVATED HOB FOR ASPIRATION PRECAUTION AND ENSURE AIRWAY, ALSO LOWEST BED POSITIONED. BED ALARM IS ON AT ALL TIMES FOR SAFETY. CALL LIGHT WITHIN REACH, WILL CONTINUE TO MONITOR.
[2023-04-14] MEDS: Fluoxetine 10 mg capsule PO SCH (09:01)
[2023-04-14] MEDS: LEVETIRACETAM (250 MG) 250 MG TABLET PO SCH ×2 (09:03→16:21)
[2023-04-14] MEDS: CLOPIDOGREL BISULFATE 75 MG TABLET PO SCH (09:03)
[2023-04-14] MEDS: PANTOPRAZOLE 40 MG/PACK PACK GT SCH (09:03)
[2023-04-14] MEDS: FUROSEMIDE 20 MG TABLET PO SCH (09:03)
[2023-04-14] MEDS: METOPROLOL TARTRATE 25 MG TABLET PO SCH ×2 (09:04→16:25)
[2023-04-14] MEDS: IV D5/0.45 NACL 1,000 ML IV PRN (11:29)
[2023-04-14 16:00] VITALS: BP 130/60
--- NOTE | 2023-04-14 19:15 | NUR ---
SOFTWARE CONFIGURATION SPECIALIST opening note Pt was resting in bed, asleep, HOB elevated, A&Ox1, easy to arouse, GT intact and patent, jevity 1.2 infusing well, breathing even and unlabored, on RA, NS at 75 cc/ hr infusing via Left hand 20 GA, infusing well, all safety measures are in place, will continue to monitor
--- NOTE | 2023-04-14 19:32 | NUR ---
RN CLOSING NOTE PATIENT RESTING IN BED. IN NO ACUTE DISTRESS OBSERVED. RESPIRATORY EVEN AND UNLABORED IN ROM AIR. SKIN IS WARM TO TOUCH KEEP CLEAN/DRY. KEPT ELEVATED HOB FOR ENSURE AIRWAY/ASPIRATION PRECAUTION, AND LOWEST BED POSITION. BED ALARM IS ON ALL TIMES FOR SAFETY. CALL LIGHT WITHIN REACH, WILL ENDORSE ENVIRONMENTAL CONSTRUCTION ENGINEER.
[2023-04-14] MEDS: SENNOSIDES 8.6 MG TABLET PO SCH (21:40)
[2023-04-14] MEDS: ATORVASTATIN 10 MG TABLET PO SCH (21:40)
[2023-04-14] MEDS: GABAPENTIN 100 MG CAPSULE PO SCH (21:40)
[2023-04-15] VITALS: BP 128/64
[2023-04-15] MEDS: IV D5/0.45 NACL 1,000 ML IV PRN (01:40)
--- NOTE | 2023-04-15 07:10 | NUR ---
CERTIFIED MAINTENANCE WELDER OPENING NOTE PATIENT AWAKE, NOT ORIENTED, CONFUSED NOT FOLLOWING COMMANDS, PATIENT JUST MAKING SOUNDS. HOB ELEVATED, ON ROOM AIR O2 SAT 95%, NO S/S OF RESPIRATORY DISTRESS NOTED. G-TUBE FEEDING JEVITY 1.2 AT 55ML/HR, TOLERATING WELL, NO RESIDUAL NOTED. IV R HAND #20 INTACT. INFUSING IVF D51/2NS AT 125ML/HR. CONTRACTED LOWER EXT. INCONTINENT, NEED REPOSITIONING OFTEN. R ELBOW SKIN TEAR. SAFETY MEASURES IN PLACE, BED LOCKED TO THE LOWEST POSITION. CALL LIGHT AND TABLE WITHIN REACH. CONT TO MONITOR.
--- NOTE | 2023-04-15 07:10 | NUR ---
[place] SALES REPRESENTATIVE OPENING NOTE PATIENT AWAKE, CONFUSED. ON ROOM AIR, NO S/S OF RESPIRATORY DISTRESS NOTED. HOB ELEVATED. G-TUBE FEEDING TOLERATING WELL, NO RESIDUAL NOTED. ALL EXT. CONTRACTED. INCONTINENT ON DIAPER. NO SKIN ISSUES NOTED. PATIENT ON OBED WRIST RESTRAIN. IV SITE TO LFA INTACT. CONT. TO MONITOR.
[2023-04-15 08:00] VITALS: BP 128/64
[2023-04-15] MEDS: Fluoxetine 10 mg capsule PO SCH (09:59)
[2023-04-15] MEDS: FUROSEMIDE 20 MG TABLET PO SCH (09:59)
[2023-04-15] MEDS: CLOPIDOGREL BISULFATE 75 MG TABLET PO SCH (10:00)
[2023-04-15] MEDS: METOPROLOL TARTRATE 25 MG TABLET PO SCH ×2 (10:00→17:00)
[2023-04-15] MEDS: LEVETIRACETAM (250 MG) 250 MG TABLET PO SCH ×2 (10:00→18:30)
[2023-04-15] MEDS: PANTOPRAZOLE 40 MG/PACK PACK GT SCH (10:01)
[2023-04-15 17:00] VITALS: BP 132/80
--- NOTE | 2023-04-15 18:50 | NUR ---
SAT ACT INSTRUCTOR DISCHARGE NOTE PATIENT AWAKE, CONFUSED. NO S/S OF RESPIRATORY DISTRESS NOTED. G-TUBE FLUSHED AND CLAMPED PRIOR TO GO HOME WITH HOME HEALTH. DISCHARGE INSTRUCTIONS GIVEN TO PATIENT'S SON. INCLUDING MEDS NAME, PURPOSE. ALSO A HOME HEALTH NURSE WILL FOLLOW UP TO SET UP G-TUBE FEEDING. PATIENT'S SON VERBALIZED UNDERSTANDING INSTRUCTIONS AND SIGNED DISCHARGE FORM. IV ACCESS REMOVED CATHETER TIP INTACT. PRESSURE DRESSING APPLIED. PATIENT IS GOING HOME VIA W/C ACCOMPANIED BY PATIENT'S SON AND STAFF EAP COUNSELOR.
== END 2023-04-15 23:48 | disposition home health service (06) | DRG 641 ==
LOC: ER 03:48 → MEDSG1 06:35
PROVIDERS: ADMIT Internal Medicine; ATTEND Internal Medicine
PROC: 0DH63UZ Insertion of Feeding Device into Stomach, Percutaneous Approach (ICD-10-PCS; principal; 2023-04-12)
DX: R62.7 Adult failure to thrive (principal); E87.0 Hyperosmolality and hypernatremia; E87.1 Hypo-osmolality and hyponatremia; G30.9 Alzheimer's disease, unspecified; F02.80 Dementia in other diseases classified elsewhere, unspecified severity, without behavioral disturbance, psychotic disturbance, mood disturbance, and anxiety; G40.909 Epilepsy, unspecified, not intractable, without status epilepticus; R13.10 Dysphagia, unspecified; E78.5 Hyperlipidemia, unspecified; I10 Essential (primary) hypertension; E87.6 Hypokalemia; K29.70 Gastritis, unspecified, without bleeding; Z78.1 Physical restraint status; Z86.73 Personal history of transient ischemic attack (TIA), and cerebral infarction without residual deficits; Z20.822 Contact with and (suspected) exposure to COVID-19
CPT/HCPCS: 36415; 43246; 71045-TC; 80048-TC; 83735-TC; 84100-TC; 84132-TC; 84295-TC; 84439-TC; 84443-TC; 84481; 85025-TC; 85730-TC; 86850-TC; 87081-TC; 92526; 92611-TC; 97110-TC; 97530-TC; A4223; C9113; C9803; G0378; J1953; J2704; J3480; J3490; J7030

== ENCOUNTER 2023-04-19 02:04 | Inpatient (IN) | payer MEDICARE, OTHER ==
[~2023-04-19] VITALS: Ht 152.4 cm; Wt 40.9 kg
[~2023-04-19 02:04] MED LIST: ATOR20TA PO; CLOP75TA15 PO; FLUO10CA29 PO; FURO20TA4 PO; GABA-532 PO; LEVE250T2 PO; LORA-259 PO; METO25TA20 PO; PANT40TA49 PO; SENN-261 PO; ZOLP10TA2 PO
--- NOTE | 2023-04-19 02:28 | NUR ---
[facility] S/P ACCIDENTAL PULLING OUT GTUBE 2HRS MEDICAL REVIEW COORDINATOR. S/P GTUBE PLACEMENT 04/12/23. PT PLACED COMFORTABLY IN BED, VITALS CHECKED.
--- NOTE | 2023-04-19 02:34 | NUR ---
EKG DONE AT BEDSIDE
--- NOTE | 2023-04-19 02:40 | NUR ---
COVID SWAB COLLECTED AND SENT TO LAB
--- NOTE | 2023-04-19 03:00 | NUR ---
Pt care continue as LAB done.
[2023-04-19 03:27] LABS: BASOPHILS % (AUTO) 0.5 % (0.0-2.0); EOSINOPHILS % (AUTO) 4.8 % (0.0-6.0); HEMATOCRIT 28 % (33-45); HEMOGLOBIN 8.9 g/dL (11.5-14.8); LYMPHOCYTES # (AUTO) 2.1 K/uL (0.8-4.8); LYMPHOCYTES % (AUTO) 30.2 % (20.0-44.0); MEAN CORPUSCULAR HGB CONC 32 g/dl (31.0-36.0); MEAN CORPUSCULAR VOLUME 92 fL (82-100); MONOCYTES # (AUTO) 0.6 K/uL (0.1-1.30); MONOCYTES % (AUTO) 9.3 % (2.0-12.0); NEUTROPHILS # (AUTO) 3.8 K/uL (1.8-8.9); NEUTROPHILS % (AUTO) 55.2 % (43.0-81.0); PLATELET COUNT (AUTO) 359 K/uL (150-450); RED BLOOD CELL COUNT(AUTO) 3.01 MIL/uL (4.0-5.2); WHITE BLOOD COUNT (AUTO) 6.8 K/uL (4.3-11.0)
[2023-04-19 03:33] LABS: CREATININE 1.1 mg/dL (0.6-1.3)
[2023-04-19] MEDS ORDERED: MORPHINE SULFATE INJ 2 MG/ML DISP.SYRIN IV PRN (04:30)
[2023-04-19] MEDS ORDERED: LORAZEPAM 1 MG TABLET PO PRN (04:30)
[2023-04-19] MEDS ORDERED: IV NS 0.9% 1,000 ML IV SCH (04:30)
[2023-04-19] MEDS ORDERED: ACETAMINOPHEN 325 MG TABLET PO PRN (04:30)
[2023-04-19] MEDS ORDERED: hydrALAZINE HCL IV 20 MG VIAL IV PRN (04:30)
[2023-04-19] MEDS ORDERED: ONDANSETRON HCL/PF 4 MG/2 ML VIAL IVP PRN (04:30)
--- NOTE | 2023-04-19 05:00 | NUR ---
Pt care continue as report is given to the RN ANTONIETTA as Pt is been admitted to MED/SURG , Room 311. Pt care continue.
--- NOTE | 2023-04-19 05:47 | NUR ---
Pt is noted off the unit to Med/surg , Room 311 as she is been admitted under DR. ESPINOZA. Pt care continue.
[2023-04-19 06:00] VITALS: BP 125/64
--- NOTE | 2023-04-19 06:00 | NUR ---
admissions rn notes Pt arrived at the unit. Pt is alert and orientedX1. on room air. no sob. no S/S of distress noted. VS is stable. IV at R wrist # 20 is clean, intact and flushes well. Pt's belonging was checked by GHAZALA Peoples. Skin assessment is done and performed, pictures are taken and placed at Pt's chart. Noted L forehead bruise. safety precautions is maintained. bed at low position, brakes locked, side rails upX3, hob elevated, bed alarm is on and call light is within reach. will continue to monitor.
--- NOTE | 2023-04-19 06:11 | NUR ---
RN notes Pt's IV from ER is infiltrates. Tried to inserted new IV but unsuccesful. Informed and notify DR. Huerta. ordered for midline. House sup is aware and informed. Charge nurse is aware and informed.
--- NOTE | 2023-04-19 07:25 | NUR ---
OPENING NOTE PATIENT RECEIVED AWAKE A/O x1, CONFUSED, UNABLE TO MAKE NEEDS KNOWN. ON ROOM AIR, BREATHING EVEN AND UNLABORED, NO S/S OF SOB. SKIN: SACRAL REDNESS, L FOREHEAD BRUISE. PATIENT HAS CLEAR LUNG SOUNDS AND HYPERACTIVE BOWEL SOUNDS. GT DRESSING SITE CLEAN AND INTACT. NO COMPLAINTS OF PAIN. IV ACCESS R WRIST G#20 RUNNING NS 75ML/HR. . INCONTINENT: PUREWICK. FALL AND SAFETY PRECAUTIONS IN PLACE: BED LOCKED AND AT THE LOWEST POSITION, SRx2, BED ALARM ON, CALL LIGHT WITHIN REACH.
[2023-04-19 08:12] VITALS: BP 125/64
--- NOTE | 2023-04-19 08:49 | NUR ---
WOUND CARE CONSULT: PT PRESENTS WITH LEGS DRAWN UP, SACRAL SCARRING, AREAS OF DISCOLORATION TO FOREHEAD, UPPER AND LOWER EXTREMITIES AND SCAR/DISCOLORATION TO RT HIP AREA, ALL PRESENT ON ADMISSION. RECOMMENDATIONS MADE FOR SKIN PROTECTION. DISCUSSED WITH NURSING STAFF. IN AGREEMENT WITH PLAN OF CARE. Addendum: 04/19/23 at 0851 by KANE GALICIA WNDNU Amended: Links added.
[2023-04-19] MEDS: FUROSEMIDE 20 MG TABLET PO SCH (09:00)
[2023-04-19] MEDS: ENOXAPARIN SODIUM 30 MG/0.3 ML DISP.SYRIN SQ SCH (09:00)
[2023-04-19] MEDS: PANTOPRAZOLE 40 MG TABLET.DR PO SCH (09:00)
[2023-04-19] MEDS: Fluoxetine 10 mg capsule PO SCH (09:00)
[2023-04-19] MEDS ORDERED: Z GUARD REMEDY 4 OZ OINT TP PRN (09:00)
[2023-04-19] MEDS: METOPROLOL TARTRATE 25 MG TABLET PO SCH ×2 (09:00→17:00)
[2023-04-19] MEDS: CLOPIDOGREL BISULFATE 75 MG TABLET PO SCH (09:00)
[2023-04-19] MEDS ORDERED: LEVETIRACETAM (250 MG) 250 MG TABLET PO SCH (09:00)
[2023-04-19] MEDS ORDERED: IV NS 0.9% 1,000 ML IV PRN (09:41)
--- NOTE | 2023-04-19 09:57 | NUR ---
MEDICATION NOTE PATIENT IS NPO/ AWAITING GT PLACEMENT. NO NPO MEDICATIONS. LATE IV KEPPRA DUE TO IV PUMP ISSUE. NO ENOXAPARIN ADMINISTERED DUE TO LOW HGB LEVELS.
[2023-04-19] MEDS: LEVETIRACETAM (500MG) 250 MG in IV NS 0.9% 100 ML IV SCH ×2 (10:21→20:50)
[2023-04-19] MEDS: Z GUARD REMEDY 4 OZ OINT TP SCH (10:28)
[2023-04-19 15:55] VITALS: BP 110/54
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
--- NOTE | 2023-04-19 19:35 | NUR ---
CLOSING NOTE PATIENT IN BED RESTING, A/O x1, CONFUSED, UNABLE TO MAKE NEEDS KNOWN. ON ROOM AIR, BREATHING EVEN AND UNLABORED, NO S/S OF SOB. NO COMPLAINTS OF PAIN. IV ACCESS R WRIST G#20 RUNNING NS 75ML/HR. PATIENT NPO. INCONTINENT. PATIENT TRANSFERRED TO ROOM 304-1. FALL RISK AND SAFETY PRECAUTIONS MAINTAINED: BED LOCKED AND AT THE LOWEST POSITION, SRx2, BED ALARM ON, CALL LIGHT WITHIN REACH.
[2023-04-19 20:00] VITALS: BP 118/55
[2023-04-19] MEDS: ATORVASTATIN 10 MG TABLET PO SCH (21:35)
[2023-04-19] MEDS: GABAPENTIN 100 MG CAPSULE PO SCH (21:35)
[2023-04-19] MEDS: SENNOSIDES 8.6 MG TABLET PO SCH (21:35)
--- NOTE | 2023-04-19 22:30 | NUR ---
MS RN NOTES IV SITE LEAKING,NEW SALINE LOCK #22 INSERTED ON LEFT FOREARM,SECURED WITH KERLIX,SAME IVF INFUSING.
--- NOTE | 2023-04-20 06:12 | NUR ---
MS RN NOTES LAYING ON BED,SLEEP WITH INTERVALS,KEPT NPO AWAITING FOR GI CONSULT/PEG PLACEMENT.IVF INFUSING WELL ON LFA SALINE LOCK.NO FALL,NO INJURY.IN NO ACUTE DISTRESSWILL ENDORSE TO DAY NURSE FOR HALIMA.
[2023-04-20 06:21] LABS: BASOPHILS % (AUTO) 0.5 % (0.0-2.0); EOSINOPHILS % (AUTO) 2.2 % (0.0-6.0); HEMATOCRIT 28 % (33-45); HEMOGLOBIN 9.2 g/dL (11.5-14.8); LYMPHOCYTES # (AUTO) 2.2 K/uL (0.8-4.8); LYMPHOCYTES % (AUTO) 26.4 % (20.0-44.0); MEAN CORPUSCULAR HGB CONC 33 g/dl (31.0-36.0); MEAN CORPUSCULAR VOLUME 91 fL (82-100); MONOCYTES # (AUTO) 0.6 K/uL (0.1-1.30); MONOCYTES % (AUTO) 7.7 % (2.0-12.0); NEUTROPHILS # (AUTO) 5.2 K/uL (1.8-8.9); NEUTROPHILS % (AUTO) 63.2 % (43.0-81.0); PLATELET COUNT (AUTO) 382 K/uL (150-450); RED BLOOD CELL COUNT(AUTO) 3.07 MIL/uL (4.0-5.2); WHITE BLOOD COUNT (AUTO) 8.3 K/uL (4.3-11.0)
[2023-04-20 06:28] LABS: ALANINE AMINOTRANSFERASE 23 U/L (12-78); ALBUMIN 2.7 g/dL (3.4-5.0); ALKALINE PHOSPHATASE 90 U/L (46-116); ASPARTATE AMINOTRANSFERASE 30 U/L (15-37); BILIRUBIN,TOTAL 0.4 mg/dL (0.2-1.0); CALCIUM, SERUM 9.1 mg/dL (8.5-10.1); CARBON DIOXIDE 26 mmol/L (21-32); CHLORIDE 107 mmol/L (98-107); CREATININE 0.8 mg/dL (0.6-1.3); GLUCOSE 85 mg/dL (74-106); MAGNESIUM 2.1 mg/dL (1.8-2.4); PHOSPHORUS 2.8 mg/dL (2.5-4.9); POTASSIUM 3.8 mmol/L (3.5-5.1); SODIUM SERUM 143 mmol/L (136-145); TOTAL PROTEIN, SERUM 6.7 g/dL (6.4-8.2); UREA NITROGEN, BLOOD 36 mg/dL (7-18)
--- NOTE | 2023-04-20 07:10 | NUR ---
RN OPENING NOTE RECEIVED PATIENT AWAKE A/O x1, CONFUSED, UNABLE TO MAKE NEEDS KNOWN. ON ROOM AIR, BREATHING EVEN AND UNLABORED, NO S/S OF SOB. SKIN: SACRAL REDNESS, L FOREHEAD BRUISE. NO COMPLAINTS OF PAIN. IV ACCESS LFA #22 RUNNING NS 75ML/HR. . INCONTINENT: [place]. FALL AND SAFETY PRECAUTIONS IN PLACE: BED LOCKED AND AT THE LOWEST POSITION, SRx2, BED ALARM ON, CALL LIGHT WITHIN REACH, WILL CONTINUE TO MONITOR
[2023-04-20 08:00] VITALS: BP 137/66
[2023-04-20] MEDS: LEVETIRACETAM (500MG) 250 MG in IV NS 0.9% 100 ML IV SCH ×2 (08:43→21:44)
[2023-04-20] MEDS: METOPROLOL TARTRATE 25 MG TABLET PO SCH ×2 (09:00→17:00)
[2023-04-20] MEDS: PANTOPRAZOLE 40 MG TABLET.DR PO SCH (09:00)
[2023-04-20] MEDS: FUROSEMIDE 20 MG TABLET PO SCH (09:00)
[2023-04-20] MEDS: CLOPIDOGREL BISULFATE 75 MG TABLET PO SCH (09:00)
[2023-04-20] MEDS: ENOXAPARIN SODIUM 30 MG/0.3 ML DISP.SYRIN SQ SCH (09:00)
[2023-04-20] MEDS: Fluoxetine 10 mg capsule PO SCH (09:00)
[2023-04-20] MEDS: Z GUARD REMEDY 4 OZ OINT TP SCH (09:17)
[2023-04-20 16:00] VITALS: BP 112/62
--- NOTE | 2023-04-20 18:54 | NUR ---
MS RN CLOSING NOTE PATIENT IN BED RESTING, A/O x1, CONFUSED, UNABLE TO MAKE NEEDS KNOWN. ON ROOM AIR, BREATHING EVEN AND UNLABORED, NO S/S OF SOB. NO COMPLAINTS OF PAIN. IV ACCESS R WRIST G#20 RUNNING NS 75ML/HR. PATIENT IN NPO STATUS. INCONTINENT. SON CONFIRMED HE'S COMING TO SIGN CONSENT FORMS FOR PEG TUBE PLACEMENT ORDERED. FALL RISK AND SAFETY PRECAUTIONS MAINTAINED: BED LOCKED AND AT THE LOWEST POSITION, SRx2, BED ALARM ON, CALL LIGHT WITHIN REACH, WILL BE ENDORSED TO EDITOR AT LARGE NURSE FOR HALIMA
--- NOTE | 2023-04-20 19:00 | NUR ---
RN OPENING NOTE RECEIVED PT ASLEEP IN BED. PT IS A/O X 1. PT IS IN RA, TOLERATING WELL, BREATHING EVEN AND UNLABORED @ THIS TIME. PT IV PRESENT ON LEFT FOREARM #22G RUNNING NS @75MLS/HR, PATENT, INTACT AND FLUSHES WELL W/ NO S &SX OF INFILTRATION @ SITE NOTED. PT IS ON DIAPER. SAFETY MEASURES IS IN PLACE . BED IN LOWEST AND LOCKED POSITION. SIDE RAILS UP X 4. BEDSIDE TABLE AND CALL IS EASY REACH. BED ALARM IS ON. WILL CONTINUE TO MONITOR PT ACCORDINGLY.
[2023-04-20 20:00] VITALS: BP 130/70
[2023-04-20] MEDS: GABAPENTIN 100 MG CAPSULE PO SCH (22:00)
[2023-04-20] MEDS: SENNOSIDES 8.6 MG TABLET PO SCH (22:00)
[2023-04-20] MEDS: ATORVASTATIN 10 MG TABLET PO SCH (22:00)
[2023-04-21] MEDS ORDERED: ENOXAPARIN SODIUM 40 MG/0.4 ML DISP.SYRIN SQ SCH (06:00)
--- NOTE | 2023-04-21 06:47 | NUR ---
RN CLOSING NOTE PT IS ASLEEP & RESTING COMFORATBLY IN BED. PT IS A/O X 1, RESPONSIVE AND FOLLOWS VERBAL COMMAND. PT IS IN RA W/ NO S & SX OF RESPIRATORY DISTRESS @ THIS TIME. PT IV PRESENT ON LEFT FOREARM @22G RUNNING NS 75 MLS/HR, PATENT INTACT AND FLUSHES WELL W/ NO S & SX OF INFILTRATION @ SITE NOTED. PT DIAPER CHANGED X 1. PT KEPT CLEAN AND DRY. ADMINISTERED MEDICATION PER MD'S ORDER. SAFETY MEASURES IS IN PLACE. BED IN LOWEST AND LOCKED POSITION. SIDERAILS UP X 4. BEDSIDE TABLE AND CALL LIGHT IS EASY REACH. BED ALARM IS ON. WILL ENDORSE PT TO THE NEXT SHIFT FOR HALIMA.
--- NOTE | 2023-04-21 07:30 | NUR ---
RN OPENING NOTE RECEIVED PATIENT AWAKE A/O x1, CONFUSED, UNABLE TO MAKE NEEDS KNOWN. ON ROOM AIR, BREATHING EVEN AND UNLABORED, NO S/S OF SOB. SKIN: SACRAL REDNESS, L FOREHEAD BRUISE. NO COMPLAINTS OF PAIN. IV ACCESS LFA #22 RUNNING NS 75ML/HR. . FALL AND SAFETY PRECAUTIONS IN PLACE: BED LOCKED AND AT THE LOWEST POSITION, SRx2, BED ALARM ON, CALL LIGHT WITHIN REACH, WILL CONTINUE TO MONITOR
[2023-04-21 08:00] VITALS: BP 138/76
[2023-04-21 08:10] LABS: BASOPHILS % (AUTO) 0.5 % (0.0-2.0); EOSINOPHILS % (AUTO) 3.3 % (0.0-6.0); HEMATOCRIT 28 % (33-45); HEMOGLOBIN 9.2 g/dL (11.5-14.8); LYMPHOCYTES # (AUTO) 1.9 K/uL (0.8-4.8); LYMPHOCYTES % (AUTO) 34.9 % (20.0-44.0); MEAN CORPUSCULAR HGB CONC 33 g/dl (31.0-36.0); MEAN CORPUSCULAR VOLUME 91 fL (82-100); MONOCYTES # (AUTO) 0.5 K/uL (0.1-1.30); MONOCYTES % (AUTO) 9.2 % (2.0-12.0); NEUTROPHILS # (AUTO) 2.9 K/uL (1.8-8.9); NEUTROPHILS % (AUTO) 52.1 % (43.0-81.0); PLATELET COUNT (AUTO) 343 K/uL (150-450); RED BLOOD CELL COUNT(AUTO) 3.05 MIL/uL (4.0-5.2); WHITE BLOOD COUNT (AUTO) 5.5 K/uL (4.3-11.0)
[2023-04-21 08:23] LABS: CALCIUM, SERUM 9.1 mg/dL (8.5-10.1); CREATININE 0.7 mg/dL (0.6-1.3); POTASSIUM 4.1 mmol/L (3.5-5.1)
[2023-04-21] MEDS: Fluoxetine 10 mg capsule PO SCH (09:00)
[2023-04-21] MEDS: CLOPIDOGREL BISULFATE 75 MG TABLET PO SCH (09:00)
[2023-04-21] MEDS: FUROSEMIDE 20 MG TABLET PO SCH (09:00)
[2023-04-21] MEDS: METOPROLOL TARTRATE 25 MG TABLET PO SCH ×2 (09:00→17:00)
[2023-04-21] MEDS: PANTOPRAZOLE 40 MG TABLET.DR PO SCH (09:00)
[2023-04-21] MEDS: ENOXAPARIN SODIUM 30 MG/0.3 ML DISP.SYRIN SQ SCH (09:00)
[2023-04-21] MEDS ORDERED: ANESTHESIA TRAY IN PYXIS 1 EA TRAY MC ONE (09:15)
--- NOTE | 2023-04-21 10:50 | NUR ---
Patient arrived 1045 from surgery-Peg placement, Dr Gavino Goetz ordered: tube feeding
--- NOTE | 2023-04-21 11:15 | NUR ---
Per patient's son, Andreas Gomes, patient previously had [facility] via GT. Info relayed to ELI Scott technical writing lead/mgr
[2023-04-21] MEDS: LEVETIRACETAM (500MG) 250 MG in IV NS 0.9% 100 ML IV SCH ×2 (11:50→20:17)
[2023-04-21] MEDS: Z GUARD REMEDY 4 OZ OINT TP SCH (11:54)
[2023-04-21] MEDS ORDERED: JEVITY 1.2 CAL 1,000 ML BOTTLE GT PRN (12:30)
[2023-04-21 16:02] VITALS: BP_SYST 103; BP_SYST 128; BP_DIAS 49; BP_DIAS 63
--- NOTE | 2023-04-21 19:00 | NUR ---
RN OPENING NOTE RECEIVED PT AWAKE IN BED. PT IS A/O X 1. PT IS IN RA, TOLERATING WELL, BREATHING EVEN AND UNLABORED @ THIS TIME. PT IV PRESENT ON LEFT FOREARM #20G SALINE LOCK, PATENT, INTACT AND FLUSHES WELL W/ NO S & SX OF INFILTRATION @ SITE NOTED. PT G-TUBE IS IN PLACE RUNNING JEVITY 1.2 BROOKE @ 30ML/HR, TOLERATING WELL W/ NO RESIDUAL. PT IS ON DIAPER. SAFETY MEASURES IS IN PLACE. BED IN LOWEST AND LOCKED POSITION. SIDERAILS UP X 4. BEDSIDE TABLE AND CALL LIGHT IS WITHIN REACH. BED ALARM IS ON. WILL CONTINUE TO MONITOR PT ACCORDINGLY.
--- NOTE | 2023-04-21 19:14 | NUR ---
Patient started on Jevity 1.2 sol at 55ml/hr x24hrs. however observed feeding machine beeping off after sometime although GT flushes well. Adjusted to 45ml/hr then to to 30 ml/hr, still beeping off as of end of shift, GT still flushes well, charge nurse aware. Endorsed to operations supervisor 2nd shift nurse to advise
--- NOTE | 2023-04-21 19:23 | NUR ---
MS RN CLOSING NOTE PATIENT IN BED RESTING, A/O x1, CONFUSED, UNABLE TO MAKE NEEDS KNOWN. ON ROOM AIR, BREATHING EVEN AND UNLABORED, NO S/S OF SOB. NO COMPLAINTS OF PAIN. IV ACCESS R WRIST G#20 RUNNING NS 75ML/HR. PATIENT IN NPO STATUS. INCONTINENT. FALL RISK AND SAFETY PRECAUTIONS MAINTAINED: BED LOCKED AND AT THE LOWEST POSITION, SRx2, BED ALARM ON, CALL LIGHT WITHIN REACH, ENDORSED TO CIGAR HEAD PEGGER NURSE FOR HALIMA
[2023-04-21 20:00] VITALS: BP 143/66
[2023-04-21] MEDS: ATORVASTATIN 10 MG TABLET PO SCH (21:19)
[2023-04-21] MEDS: GABAPENTIN 100 MG CAPSULE PO SCH (21:19)
[2023-04-21] MEDS: SENNOSIDES 8.6 MG TABLET PO SCH (21:19)
[2023-04-22 05:49] LABS: BASOPHILS % (AUTO) 0.5 % (0.0-2.0); EOSINOPHILS % (AUTO) 4.3 % (0.0-6.0); HEMATOCRIT 27 % (33-45); HEMOGLOBIN 8.7 g/dL (11.5-14.8); LYMPHOCYTES # (AUTO) 1.7 K/uL (0.8-4.8); LYMPHOCYTES % (AUTO) 28.2 % (20.0-44.0); MEAN CORPUSCULAR HGB CONC 33 g/dl (31.0-36.0); MEAN CORPUSCULAR VOLUME 93 fL (82-100); MONOCYTES # (AUTO) 0.4 K/uL (0.1-1.30); MONOCYTES % (AUTO) 7.4 % (2.0-12.0); NEUTROPHILS # (AUTO) 3.6 K/uL (1.8-8.9); NEUTROPHILS % (AUTO) 59.6 % (43.0-81.0); PLATELET COUNT (AUTO) 326 K/uL (150-450); RED BLOOD CELL COUNT(AUTO) 2.85 MIL/uL (4.0-5.2)
[2023-04-22 06:12] LABS: CALCIUM, SERUM 8.7 mg/dL (8.5-10.1); CREATININE 0.7 mg/dL (0.6-1.3); POTASSIUM 3.6 mmol/L (3.5-5.1)
--- NOTE | 2023-04-22 06:45 | NUR ---
RN CLOSING NOTE PT AWAKE & RESTING COMFORTABLY IN BED. PT IS A/O X 1. PT IS IN RA, W/ NO S & SX OF RESPIRATORY DISTRESS @ THIS TIME. PT IV PRESENT ON LEFT FOREARM #20G SALINE LOCK, PATENT, INTACT AND FLUSHES WELL W/ NO S & SX OF INFILTRATION @ SITE NOTED. PT G-TUBE IS IN PLACE RUNNING JEVITY 1.2 BROOKE @ 30ML/HR, TOLERATING WELL W/ NO RESIDUAL. PT DIAPER CHANGED X 1. PT KEPT CLEAN & DRY. ADMINISTERED MEDICATIONS ACCORDINGLY PER MD'S ORDER. SAFETY MEASURES IS IN PLACE. BED IN LOWEST AND LOCKED POSITION. SIDERAILS UP X 4. BEDSIDE TABLE AND CALL LIGHT IS WITHIN REACH. BED ALARM IS ON. WILL ENDORSE TO THE NEXT SHIFT FOR HALIMA.
--- NOTE | 2023-04-22 07:46 | NUR ---
RN OPENING NOTE PT AWAKE & RESTING COMFORTABLY IN BED. PT IS IN RA, W/ NO S & SX OF RESPIRATORY DISTRESS @ THIS TIME. PT IV PRESENT ON LEFT FOREARM #20G SALINE LOCK, PATENT, INTACT AND FLUSHES WELL W/ NO S & SX OF INFILTRATION @ SITE NOTED. PT G-TUBE IS IN PLACE RUNNING JEVITY 1.2 BROOKE @ 55ML/HR, TOLERATING WELL W/ NO RESIDUAL. SAFETY MEASURES IS IN PLACE. BED IN LOWEST AND LOCKED POSITION. SIDERAILS UP X 4. BEDSIDE TABLE AND CALL LIGHT IS WITHIN REACH. BED ALARM IS ON. WILL CONTINUE TO MONITOR.
[2023-04-22 08:00] VITALS: BP 130/54
[2023-04-22] MEDS: LEVETIRACETAM SOL (5 ML) 100 MG/ML UDC GT SCH ×2 (08:54→21:07)
[2023-04-22] MEDS: PANTOPRAZOLE 40 MG TABLET.DR PO SCH (08:55)
[2023-04-22] MEDS: METOPROLOL TARTRATE 25 MG TABLET PO SCH ×2 (08:55→17:13)
[2023-04-22] MEDS: CLOPIDOGREL BISULFATE 75 MG TABLET PO SCH (08:55)
[2023-04-22] MEDS: FUROSEMIDE 20 MG TABLET PO SCH (08:55)
[2023-04-22] MEDS: ENOXAPARIN SODIUM 30 MG/0.3 ML DISP.SYRIN SQ SCH (08:57)
[2023-04-22] MEDS: Fluoxetine 10 mg capsule PO SCH (09:01)
[2023-04-22] MEDS: Z GUARD REMEDY 4 OZ OINT TP SCH (09:25)
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
[2023-04-22] MEDS ORDERED: METO-295 GT (13:43)
[2023-04-22] MEDS ORDERED: LEVE100S GT (13:43)
[2023-04-22] MEDS ORDERED: LACT-209 GT (13:43)
[2023-04-22] MEDS: METOCLOPRAMIDE HCL 10 MG/2 ML VIAL IV SCH ×2 (14:25→17:13)
[2023-04-22 16:00] VITALS: BP 123/67
--- NOTE | 2023-04-22 18:56 | NUR ---
RN CLOSING NOTE PT AWAKE & RESTING COMFORTABLY IN BED. PT IS A/O X 1. PT IS IN RA, W/ NO S & SX OF RESPIRATORY DISTRESS @ THIS TIME. PT IV PRESENT ON LEFT FOREARM #20G SALINE LOCK, PATENT, INTACT AND FLUSHES WELL W/ NO S & SX OF INFILTRATION @ SITE NOTED. PT G-TUBE IS IN PLACE RUNNING JEVITY 1.2 BROOKE @ 55ML/HR, TOLERATING WELL W/ NO RESIDUAL. PT KEPT CLEAN & DRY. ADMINISTERED MEDICATIONS ACCORDINGLY PER MD'S ORDER. SAFETY MEASURES IS IN PLACE. BED IN LOWEST AND LOCKED POSITION. SIDERAILS UP X 4. BEDSIDE TABLE AND CALL LIGHT IS WITHIN REACH. BED ALARM IS ON. PATIENT IS FOR DISCHARGED, DISCHARGED PAPERS IN CHART FOR SIGNATURE OF POA. WILL ENDORSE TO THE NEXT SHIFT FOR HALIMA.
--- NOTE | 2023-04-22 19:30 | NUR ---
MSRN FULLY AWAKE, DEMENTED. COOPERATIVE. FOR DISCHARGE TODAY. HL DC'D GT FLUSHED WITH 150 CC WATER, PATENT. CLAMPED FOR NOW. AWAITING FOR FAMILY .ID BAND OFF.
[2023-04-22 20:00] VITALS: BP 119/53
--- NOTE | 2023-04-22 21:00 | NUR ---
MSRN DUE MEDS GIVEN VIA [employer]. AWAITING FOR SON
[2023-04-22] MEDS: GABAPENTIN 100 MG CAPSULE PO SCH (21:07)
[2023-04-22] MEDS: ATORVASTATIN 10 MG TABLET PO SCH (21:07)
[2023-04-22] MEDS: SENNOSIDES 8.6 MG TABLET PO SCH (21:08)
--- NOTE | 2023-04-22 22:43 | NUR ---
MSRN SON CAME. DISCHARGE INSTRUCTIONS GIVEN TO SON. APPEARS TO UNDERSTAND. ESCORTED BY SLAT GRADER WITH ALL PERSONAL BELONGINGS IN SATISFACTORY CONDITION, VIA PRIVATE CAR.
== END 2023-04-22 22:45 | disposition home health service (06) | DRG 393 ==
LOC: ER 02:15 → MED 04:10
PROVIDERS: ADMIT Nurse Practitioner Acute Care; ATTEND Nurse Practitioner Acute Care
PROC: 0DH63UZ Insertion of Feeding Device into Stomach, Percutaneous Approach (ICD-10-PCS; principal; 2023-04-21)
DX: K94.29 Other complications of gastrostomy (principal); G93.41 Metabolic encephalopathy; D68.59 Other primary thrombophilia; E44.0 Moderate protein-calorie malnutrition; Y83.3 Surgical operation with formation of external stoma as the cause of abnormal reaction of the patient, or of later complication, without mention of misadventure at the time of the procedure; Y92.009 Unspecified place in unspecified non-institutional (private) residence as the place of occurrence of the external cause; I10 Essential (primary) hypertension; Z86.73 Personal history of transient ischemic attack (TIA), and cerebral infarction without residual deficits; K29.70 Gastritis, unspecified, without bleeding; R62.7 Adult failure to thrive; R13.10 Dysphagia, unspecified; Y82.8 Other medical devices associated with adverse incidents; F02.80 Dementia in other diseases classified elsewhere, unspecified severity, without behavioral disturbance, psychotic disturbance, mood disturbance, and anxiety; G30.9 Alzheimer's disease, unspecified; Z79.01 Long term (current) use of anticoagulants; Z79.899 Other long term (current) drug therapy; E88.09 Other disorders of plasma-protein metabolism, not elsewhere classified; E86.0 Dehydration; D63.8 Anemia in other chronic diseases classified elsewhere; R56.9 Unspecified convulsions; Z74.09 Other reduced mobility; I45.10 Unspecified right bundle-branch block
CPT/HCPCS: 36415; 43246; 71045-TC; 80048-TC; 80053-TC; 83735-TC; 84100-TC; 85025-TC; 85730-TC; 86850-TC; 87081-TC; A6403; C9803; G0378; J0690; J1650; J1953; J2704; J2765; J3490; J7030